=== PATIENT | male | born 2000 | race Caucasian/White ===

== ENCOUNTER 2018-08-27 21:45 | Emergency (ER) | payer OTHER ==
[2018-08-27] MEDS ORDERED: Amoxicillin PO (*) 250 MG CAP PO ONE (21:52)
[2018-08-27] MEDS ORDERED: Amoxicillin PO (*) 500 MG CAP PO ONE (21:52)
[2018-08-27 21:56] VITALS: BP 130/65
--- NOTE | 2018-08-27 21:58 | UC ---
Ear Complaint HPI - HPI Summary HPI Summary: patient started having left earpain tonight. he has his left lower wisdom tooth that has started to push through causeing somw swelling of the lower jaw - History of Current Complaint Stated Complaint: LT EAR COMPLAINT Time Seen by Provider: 08/27/18 21:49 Hx Obtained From: Patient Onset/Duration: Sudden Onset, Lasting Days Severity Initially: Moderate Severity Currently: Moderate Associated Signs/Symptoms: Positive: Swelling @, URI Symptoms - Allergies/Home Medications Allergies/Adverse Reactions: Allergies Allergy/AdvReac Type Severity Reaction Status Date / Time No Known Allergies Allergy Verified 08/27/18 21:53 PMH/Surg Hx/FS Hx/Imm Hx Previously Healthy: Yes - Surgical History Surgical History: None - Family History Known Family History: Positive: Hypertension - Social History Alcohol Use: None Substance Use Type: None Review of Systems All Other Systems Reviewed And Are Negative: Yes Constitutional: Positive: Negative Skin: Positive: Negative Eyes: Positive: Negative ENT: Positive: Sore Throat, Ear Ache, Sinus Congestion Respiratory: Positive: Negative Cardiovascular: Positive: Negative Gastrointestinal: Positive: Negative Genitourinary: Positive: Negative Motor: Positive: Negative Neurovascular: Positive: Negative Musculoskeletal: Positive: Negative Neurological: Positive: Headache Psychological: Positive: Negative Is Patient Immunocompromised?: No Physical Exam Triage Information Reviewed: Yes Appearance: Well-Appearing, Well-Nourished, Pain Distress Eye Exam: Normal ENT: Positive: Pharyngeal erythema, TM bulging, TM red Dental Exam: Normal Neck exam: Normal Respiratory Exam: Normal Cardiovascular Exam: Normal Abdominal Exam: Normal Bowel Sounds: Positive: Present Musculoskeletal Exam: Normal Neurological Exam: Normal Psychological Exam: Normal Skin Exam: Normal Ear Complaint Course/Dx - Course Course Of Treatment: hx obtained, exam performed ,meds reviewed, patient treated for left otitis media, visible wisdom tooth pushing through on the left side, mild swelling of the left side of jaw noted, mild lymphadenopathy of the same side, treated with abx - Differential Dx/Diagnosis Differential Diagnosis/HQI/PQRI: Cerumen Impaction, Otitis Externa, Otitis Media , Perforated TM, Pharyngitis, Trigeminal Nueralgia Provider Diagnosis: Left otitis media Discharge - Sign-Out/Discharge Documenting (check all that apply): Patient Departure All imaging exams completed and their final reports reviewed: No Studies - Discharge Plan Condition: Stable Disposition: HOME Prescriptions: Amoxicillin PO (*) [Amoxicillin 875 MG (*)] 875 mg PO BID #19 tab Patient Education Materials: Ear Infection (ED) Referrals: No Primary Care Phys,NOPCP [Primary Care Provider] - Additional Instructions: 1.take the medication as prescribed. 2.Warm compresses to the ear 3. ibuprofen as needed for pain - Billing Disposition and Condition Condition: STABLE Disposition: Home - Attestation Statements Provider Attestation: I was available for consult. This patient was seen by the ASHLEY. The patient was not presented to , seen by or examined by ms -Jasvir Ramon MD
== END 2018-08-27 22:05 | disposition home or self-care (01) ==
LOC: UCCORT 21:45
DX: H66.92 Otitis media, unspecified, left ear (principal)
CPT/HCPCS: 99202; A9270-GY; G0463

== ENCOUNTER 2019-03-08 10:14 | Emergency (ER) | payer OTHER ==
--- OUTSIDE RECORDS SUMMARY | 2019-03-08 10:27 | XMS REPORT | Continuity of Care Document ---
:2000 External Reference #:[id number] Author Name Roel Tyson MD Address [address] [place] [id number] Care Team Providers Name Role Phone Roel Tyson MD FACP - Care Team Information Personal Support Worker [phone] Internal Medicine Problems Description No Information Available Social History Type Date Description Comments Sex Unknown ETOH Use Denies alcohol use Recreational Drug Use Denies Drug Use Tobacco Use Start: Unknown Patient has never smoked Smoking Status Reviewed: 02/21/19 Patient has never smoked Exercise Type/Frequency Exercises regularly Allergies, Adverse Reactions, Alerts Description No Known Drug Allergies Medications Description No Active Medications Immunizations CPT Code Status Date Vaccine Lot # [id number] Given 08/13/2015 Tdap-Tetanus, Diphtheria Toxoids/Acellular Pertussis Vaccine 7+ Vital Signs Date Vital Result Comment 02/21/2019 2:16pm Body Temperature 98.0 F O2 % BldC Oximetry 98 % Heart Rate 60 /min BP Systolic 118 mmHg Supine and standing BP Diastolic 80 mmHg Supine and standing Weight 203.00 lb 07/07/2018 9:15am Body Temperature 98.3 F O2 % BldC Oximetry 98 % Heart Rate 54 /min BMI (Body Mass Index) 25.7 kg/m2 Weight 192.00 lb Height 72.50 inches 6'0.50" Results Description No Information Available Procedures Description No Information Available Medical Devices Description No Information Available Encounters Description No Information Available Assessments Date Code Description Provider 02/21/2019 R51 Headache Roel Tyson MD Plan of Treatment 02/21/2019 - Roel Tyson, [id number] HeadacheComments:After a long discussion with patient, I feel that he has been exposed to bright shining reflection and strong smell of glue at work and that may be the cause of his symptoms.He is sleeping well.He is advised to rest for 2 days and use mask and shaded glasses at work.His mother was also present.He is advised to call me if he is no better after 5 days.AllNew Medication:No Active Medications - Functional Status Functional Condition Comment Date Status Bifocal glasses Active Mental Status Description No Information Available Referrals Description No Information Available
[2019-03-08 11:06] VITALS: BP 139/66
[2019-03-08] MEDS ORDERED: Lidocaine 1% MPF ** 5 ML VIAL INJ ONE (11:14)
--- NOTE | 2019-03-08 12:08 | UC ---
Laceration HPI - HPI Summary HPI Summary: Pt presents with c/o laceration to right index finger between mip and dip joints. Pt states he was removing a metal soffit earlier today and cut his finger. Pt states that he is UTD with tetanus. - History Of Current Complaint Chief Complaint: UCLaceration Stated Complaint: RIGHT HAND INDEX FINGER LACERATION Time Seen by Provider: 03/08/19 11:03 Hx Obtained From: Patient Laceration Location: Finger Mechanism Of Injury: Sharp Trauma Onset/Duration: Sudden Onset, Still Present Severity: Mild Pain Intensity: 3 Aggravating Factors: Position, Movement Related History: Dominant Hand Right - Allergies/Home Medications Allergies/Adverse Reactions: Allergies Allergy/AdvReac Type Severity Reaction Status Date / Time No Known Allergies Allergy Verified 03/08/19 10:57 PMH/Surg Hx/FS Hx/Imm Hx Previously Healthy: Yes - Surgical History Surgical History: Yes Surgery Procedure, Year, and Place: endoscopy 2016 - Family History Known Family History: Positive: Hypertension - Social History Occupation: Employed Full-time Lives: With Family Alcohol Use: None Substance Use Type: None Smoking Status (MU): Never Smoked Tobacco Have You Smoked in the Last Year: No - Immunization History Most Recent Tetanus Shot: 08/13/15 Vaccination Up to Date: Yes Review of Systems All Other Systems Reviewed And Are Negative: Yes Constitutional: Positive: Negative Skin: Positive: Other - laceration right index finger Eyes: Positive: Negative ENT: Positive: Negative Respiratory: Positive: Negative Cardiovascular: Positive: Negative Gastrointestinal: Positive: Negative Genitourinary: Positive: Negative Motor: Positive: Negative Neurovascular: Positive: Negative Musculoskeletal: Positive: Myalgia - at laceration site Neurological: Positive: Negative Psychological: Positive: Negative Is Patient Immunocompromised?: No Physical Exam Triage Information Reviewed: Yes Appearance: Well-Appearing Vital Signs: Initial Vital Signs Temp 98.8 F 03/08/19 10:58 Pulse 55 03/08/19 10:58 Resp 20 03/08/19 10:58 BP 139/66 03/08/19 10:58 Pulse Ox 98 03/08/19 10:58 Vital Signs Reviewed: Yes Eye Exam: Normal ENT: Positive: Hearing grossly normal Dental Exam: Normal Neck exam: Normal Respiratory: Positive: No respiratory distress Musculoskeletal Exam: Normal Neurological Exam: Normal Psychological Exam: Normal Skin Exam: Other - laceration Laceration Repair - Laceration Repair 1 Description: Linear Laceration Size After Repair: Length (cm) - 2, Width (mm) - 3, Depth (mm) - 3 Modified For Repair: No Anesthesia Used: 1.0% Lido Cleansing Completed Via Routine Prep: Yes Irrigation With Pressure Irrigation Device: Yes Closure Method: Single Layer Suture Of: Skin Suture Type: Prolene - 5 sutures of 4-0 prolene. Interrupted sutures. Laceration Course/Dx - Differential Dx - Laceration/Wound Differental Diagnoses: Laceration, Tendon Laceration - Diagnosis Provider Diagnosis: Laceration of right index finger w/o foreign body w/o damage to nail Discharge ED - Sign-Out/Discharge Documenting (check all that apply): Patient Departure All imaging exams completed and their final reports reviewed: No Studies - Discharge Plan Condition: Stable Disposition: HOME Prescriptions: Cephalexin CAP* [Keflex 500 CAP*] 500 mg PO Q8H #30 cap Patient Education Materials: Care For Your Stitches (ED), Laceration (ED), Finger Laceration (ED) Referrals: Precious Bobby MD [Primary Care Provider] - If Needed Additional Instructions: Please return in 8-12 days for suture removal. You may also have your sutures removed by your PCP. You have 5 sutures . - Billing Disposition and Condition Condition: STABLE Disposition: Home
== END 2019-03-08 12:31 | disposition home or self-care (01) ==
LOC: UCCORT 10:14
DX: S61.210A Laceration without foreign body of right index finger without damage to nail, initial encounter (principal); W26.9XXA Contact with unspecified sharp object(s), initial encounter; Y92.9 Unspecified place or not applicable
CPT/HCPCS: 12001; 99212; G0463

== ENCOUNTER 2019-03-25 14:56 | Emergency (ER) | payer OTHER ==
[2019-03-25 15:23] VITALS: BP 115/70
--- NOTE | 2019-03-25 15:26 | UC ---
HPI Wound/Suture Re-check - HPI Summary HPI Summary: Pt here for suture removal...5 sutures placed on right index finger 2 weeks ago. Area has healed well without use of antibiotics. - History Of Current Complaint Chief Complaint: UCLaceration Stated Complaint: SUTURE REMOVAL Time Seen by Provider: 03/25/19 15:15 Hx Obtained From: Patient Onset/Duration: Resolved Severity: Mild Pain Intensity: 0 - Allergies/Home Medications Allergies/Adverse Reactions: Allergies Allergy/AdvReac Type Severity Reaction Status Date / Time No Known Allergies Allergy Verified 03/25/19 15:23 Home Medications: Home Medications NK [No Home Medications Reported] 03/25/19 [History Confirmed 03/25/19] PMH/Surg Hx/FS Hx/Imm Hx Previously Healthy: Yes - Surgical History Surgical History: Yes Surgery Procedure, Year, and Place: endoscopy 2016 - Family History Known Family History: Positive: Hypertension - Social History Alcohol Use: None Substance Use Type: None Smoking Status (MU): Never Smoked Tobacco Have You Smoked in the Last Year: No - Immunization History Most Recent Tetanus Shot: 08/13/15 Vaccination Up to Date: Yes Review of Systems All Other Systems Reviewed And Are Negative: Yes Skin: Positive: Other - healed wound and here for suture removal of 5 sutures right index finger Is Patient Immunocompromised?: No Physical Exam Triage Information Reviewed: Yes Appearance: Well-Appearing, No Pain Distress, Well-Nourished Vital Signs: Initial Vital Signs Temp 97.9 F 03/25/19 15:21 Pulse 52 03/25/19 15:21 Resp 18 03/25/19 15:21 BP 115/70 03/25/19 15:21 Pulse Ox 100 03/25/19 15:21 Vital Signs Reviewed: Yes Musculoskeletal Exam: Normal Neurological Exam: Normal Psychological Exam: Normal Skin: Positive: Other - Healed sutured wound right index finger. Course/Dx - Course Course Of Treatment: Sutures removed without complication. Pt tolerated procedure well - Diagnosis Provider Diagnosis: Encounter for removal of sutures Discharge ED - Sign-Out/Discharge Documenting (check all that apply): Patient Departure All imaging exams completed and their final reports reviewed: No Studies - Discharge Plan Condition: Good Disposition: HOME Referrals: Precious Bobby MD [Primary Care Provider] - Additional Instructions: Follow up with your primary care provider if any concerns - Billing Disposition and Condition Condition: GOOD Disposition: Home
== END 2019-03-25 15:37 | disposition home or self-care (01) ==
LOC: UCCORT 14:56
DX: S61.210D Laceration without foreign body of right index finger without damage to nail, subsequent encounter (principal); X58.XXXD Exposure to other specified factors, subsequent encounter